=== PATIENT | female | born 1965 | race Two or more races ===

== ENCOUNTER 2025-05-20 19:23 | Emergency (ER) | payer OTHER ==
[~2025-05-20] VITALS: Ht 160 cm; Wt 65.9 kg
[2025-05-20 21:08] LABS: Hemoglobin 12.2 g/dL (12.2-16.2); Nucleated Red Blood Cells % 0.0 %
[2025-05-20 21:10] LABS: Hematocrit 37.1 % (36.0-46.0); Mean Corpuscular Hemoglobin 26.3 pg (28.0-32.0); Mean Corpuscular Volume 79.8 fL (80.0-100.0)
--- NOTE | 2025-05-20 21:22 | ED.PDOC ---
History of Present Illness HPI Comments 60 y/o F presents with spouse for nonradiating, epigastric abdominal pain, with associated nausea. History of hiatal hernia. Patient reports on her pain being her hernia. Denies any vomiting, diarrhea, or further acute symptoms alongside any pertinent events or additional medical history. Chief Complaint: Abdominal Pain Time Seen by MD: 20:00 Reviewed Notes: Nurses Notes, Medications, Allergies Information Source: Patient Mode of Arrival: Ambulatory Severity: Moderate Timing: Hours Duration: Since onset Prehospital treatment: None Past Medical History Past Medical History (Other): current hiatal hernia Surgical History: Denies all surgeries Family History Family History: Unknown Social History Smoker: Non-Smoker Alcohol: Denies ETOH Use Drugs: Denies Drug Use Lives In: Home All Other Systems: Reviewed and Negative (As per HPI) Physical Exam General Appearance: No Apparent Distress, Normal HEENT: Normal ENT Inspection, Pharynx Normal, TMs Normal Neck: Full Range of Motion, Non-Tender, Normal, Normal Inspection Respiratory: Chest Non-Tender, Lungs Clear, No Accessory Muscle Use, No Respiratory Distress, Normal Breath Sounds Cardiovascular: No Edema, No JVD, No Murmur, No Gallop, Normal Peripheral Pulses, Regular Rate/Rhythm Breast Exam: Deferred Gastrointestinal: Epigastric (mild tenderness ), No Organomegaly, No Pulsatile Mass, Normal Bowel Sounds, Soft, Tenderness (epigastric, mild) Genitalia: Deferred Pelvic: Deferred Rectal: Deferred Extremities: No calf tenderness, Normal capillary refill, Normal inspection, Normal range of motion, Non-tender, No pedal edema Musculoskeletal : Apperance: Normal Neurologic: Alert, customer success associate II-XII nml as Tested, No Motor Deficits, Normal Affect, Normal Mood, No Sensory Deficits Cerebellar Function: Normal Reflexes: Normal Skin: Dry, Normal Color, Warm Lymphatic: No Adenopathy Was a procedure done? Was a procedure done?: No Differential Dx Considerations may include: incarcerated hernia, strangulated hernia, gastritis, gastroenteritis, among others X-Ray, Labs, Meds, VS Vital Signs Date Time Temp Pulse Resp B/P (MAP) Pulse Ox O2 Delivery O2 Flow Rate FiO2 05/20/25 23:36 98.6 109 20 144/85 (104) 96 98.6 05/20/25 19:25 98.3 111 20 164/98 97 98.3 Lab Test 05/20/25 20:38 Range/Units White Blood Count 9.6 4.4-10.8 10^3/uL Red Blood Count 4.65 4.0-5.20 10^6/uL Hemoglobin 12.2 12.2-16.2 g/dL Hematocrit 37.1 36.0-46.0 % Mean Corpuscular Volume 79.8 L 80.0-100.0 fL Mean Corpuscular Hemoglobin 26.3 L 28.0-32.0 pg Mean Corpuscular Hemoglobin Concent 33.0 32.0-36.0 g/dL Red Cell Distribution Width 16.0 H 11.8-14.3 % Platelet Count 346 140-450 10^3/uL Mean Platelet Volume 8.2 6.9-10.8 fL Neutrophils (%) (Auto) 87.1 H 37.0-80.0 % Lymphocytes (%) (Auto) 9.9 L 10.0-50.0 % Monocytes (%) (Auto) 2.5 0.0-12.0 % Eosinophils (%) (Auto) 0.2 0.0-7.0 % Basophils (%) (Auto) 0.3 0.0-2.0 % Neutrophils # (Auto) 8.4 1.6-8.6 10 ^3/uL Lymphocytes # (Auto) 1.0 0.4-5.4 10 ^3/uL Monocytes # (Auto) 0.2 0-1.3 10 ^3/uL Eosinophils # (Auto) 0 0-0.8 10 ^3/uL Basophils # (Auto) 0 0-0.2 10 ^3/uL Nucleated Red Blood Cells 0.0 % Sodium Level 140 136-145 mmol/L Potassium Level 3.4 L 3.5-5.1 mmol/L Chloride Level 101 98-107 mmol/L Carbon Dioxide Level 26 20-31 mmol/L Anion Gap 13 5-15 Blood Urea Nitrogen 10 9-23 mg/dL Creatinine 0.89 0.550-1.02 mg/dL Glomerular Filtration Rate Calc 73 >90 mL/min BUN/Creatinine Ratio 11.2 10.0-20.0 Serum Glucose 195 H 74-106 mg/dL Calcium Level 9.4 8.7-10.4 mg/dL Total Bilirubin 1.3 H 0.2-1.0 mg/dL Aspartate Amino Transferase (AST) 31 13-40 U/L Alanine Aminotransferase (ALT) 36 7-40 U/L Alkaline Phosphatase 147 H 46-116 U/L Troponin I High Sensitivity 3 L </=34 ng/L Total Protein 8.8 H 5.7-8.2 g/dL Albumin 4.8 3.2-4.8 g/dL Lipase 81 H 12-53 U/L Current Medications Medications (Trade) Dose Ordered Sig/Antonette Route Start Time Stop Time Status Last Admin Sodium Chloride 1,000 ml @ 1,000 mls/hr Q1H ONCE IVB 05/20/25 20:00 05/20/25 20:59 DC 05/20/25 23:45 Time of 1ST Reevaluation: 20:30 Reevaluation 1ST: Unchanged Patient Education/Counseling: Diagnosis, Treatment Family Education/Counseling: Diagnosis, Treatment SEPSIS Sepsis Screen Date sepsis recognized/suspect: May 20, 2025 Time Sepsis recognized/suspect: 1929 Recent Procedure: No On Antibiotic Therapy: No Respiratory Rate >20: No Heart Rate >90: Yes Temp<36 C (96.8 F) or >38.3 C: No SBP <90 or MAP <65 mmHG: No New Acute Mental Status Change: No Is the patient on CPAP, BIPAP,: No Physician Orders Troponin-I Hs (05/21/25 00:00) Troponin-I Hs (05/21/25 03:00) Troponin-I Hs (05/21/25 06:00) Ct Ab Pel With Iv Con Only (05/20/25 19:59) Electrocardigram (05/20/25 19:59) Vital Signs Date Time Temp Pulse Resp B/P (MAP) Pulse Ox O2 Delivery O2 Flow Rate FiO2 05/20/25 23:36 98.6 109 20 144/85 (104) 96 98.6 05/20/25 19:25 98.3 111 20 164/98 97 98.3 Laboratory Tests Test 05/20/25 20:38 White Blood Count 9.6 10^3/uL (4.4-10.8) Medications Medications Dose Ordered Sig/Antonette Route Start Time Stop Time Status Last Admin Dose Admin Sodium Chloride 1,000 ml @ 1,000 mls/hr Q1H ONCE IVB 05/20/25 20:00 05/20/25 20:59 DC 05/20/25 23:45 Departure 1 Departure Time of Disposition: 00:09 Impression: Primary Impression: Acute pancreatitis Additional Impressions: Hiatal hernia Intractable abdominal pain Disposition: ADMITTED INPATIENT Admit to: Med Surg Condition: Guarded Comments 60-year-old female with a history of hiatal hernia now with severe abdominal pain. Her lipase is elevated 80. Her blood glucose is elevated at 192. Patient is still has pain on re-evaluation. Patient will need to be admitted for pancreatitis, hiatal hernia, intractable abdominal pain and hyperglycemia Critical Care Note Critical Care Time?: Yes (35 min-critical care time only) Critical care comment: Total critical care time: Approximately 36 minutes Due to a high probability of clinically significant, life threatening deterioration, the patient required my highest level of preparedness to in tervene emergently and I personally spent this critical care time directly and personally managing the patient. This critical care time included obtaining a history; examining the patient; pulse oximetry; ordering and review of studies; arranging urgent treatment with development of a management plan; evaluation of patient's response to treatment; frequent reassessment; and, discussions with other providers. This critical care time was performed to assess and manage the high probability of imminent, life-threatening deterioration that could result in multi-organ failure. It was exclusive of separately billable procedures and treating other patients. Stability Stability form required: No Heart Score Heart Score: Heart Score Response (Comments) Value History N/A 0 EKG N/A 0 Age N/A 0 Risk Factors N/A 0 Troponin N/A 0 Total 0 I personally scribed for DON SIMONS MD ([email or web address]) on 05/20/25 at 21:22. E lectronically submitted by Micky Iyre ([email or web address]). DON SIMONS MD May 20, 2025 21:22
[2025-05-20 21:24] LABS: Alanine Aminotransferase 36 U/L (7-40); Albumin 4.8 g/dL (3.2-4.8); Anion Gap 13 (5-15); Calcium 9.4 mg/dL (8.7-10.4); Carbon Dioxide 26 mmol/L (20-31); Chloride 101 mmol/L (98-107); Sodium 140 mmol/L (136-145)
[2025-05-20 21:39] LABS: Alkaline Phosphatase 147 U/L (46-116); Bilirubin, Total 1.3 mg/dL (0.2-1.0); Glucose 195 mg/dL (74-106); Lipase 81 U/L (12-53); Potassium 3.4 mmol/L (3.5-5.1); Total Protein 8.8 g/dL (5.7-8.2)
[2025-05-20 21:47] LABS: BUN/Creatinine Ratio 11.2 (10.0-20.0); Blood Urea Nitrogen 10 mg/dL (9-23)
--- NOTE | 2025-05-20 22:25 | DVH ---
EXAM: CT CT AB PEL WITH IV CON ONLY History: abd pain COMPARISON: None TECHNIQUE: Multidetector spiral CT of the abdomen and pelvis was performed from lung bases to pubic symphysis. Intravenous contrast was administered during this examination. Portal venous imaging was obtained. Axial, coronal and sagittal multiplanar reformats were performed by the technologist on a separate workstation. Radiation Dose : 1. Abdomen/Pelvis: CTDIvol 9.31mGy, DLP 439.25 mGy*cm. CONTRAST: Type of contrast: Omnipaque 300 Contrast injected: 100 ml FINDINGS: Lung Bases: No acute or significant lung base finding. Normal heart size. No pleural or pericardial effusion. Liver: The liver is normal in size. No focal lesions. Normal hepatic vascular enhancement. Gallbladder and Biliary Tree: Unremarkable Spleen: Unremarkable Pancreas: The pancreas is normal in appearance without focal lesions or abnormal enhancement. Adrenal Glands: Unremarkable Kidneys: No hydronephrosis. Bladder: Unremarkable Bowel: Scattered colonic diverticula. No surrounding inflammatory changes. No colitis, obstruction, appendicitis, or other acute abnormality. Large hiatal hernia. No obstruction. Ascites: Absent Lymphadenopathy: No mesenteric, retroperitoneal or periportal lymphadenopathy. Abdominal Wall and Mesentery: Unremarkable. Vasculature: The visualized abdominal aorta is normal in size and caliber. Abdominal and pelvic vessels demonstrate normal enhancement. Pelvic Organs: Unremarkable Musculoskeletal: No aggressive focal bony lesions, acute fractures or dislocation. IMPRESSION: No acute abdominal or pelvic finding. Radiation optimization: All CT scans at this facility use at least one of these dose optimization techniques: automated exposure control mA and/or kV adjustment per patient size (includes targeted exams where dose is matched to clinical indication) or iterative reconstruction.
[2025-05-20] MEDS: IOHEXOL 300 MG/ML 100ML BOTTLE IJ ONE (23:38)
[2025-05-20] MEDS: HYDROmorphone HCL 2 MG/ML VL/or syr IV ONE (23:38)
[2025-05-20] MEDS: ONDANSETRON HCL 4 MG/2 ML VIAL IV ONE (23:38)
[2025-05-20] MEDS: SODIUM CHLORIDE 0.9% 1,000 ML IVB ONE (23:45)
[2025-05-21 02:32] VITALS: BP 152/79; PULSE 89; RESP 18; TEMP 98.1; O2SAT 98
[2025-05-21] MEDS: POTASSIUM EFFERVESENT TAB 25 MEQ PO ONE (04:10)
== END 2025-05-21 04:44 | disposition left against medical advice (07) ==
LOC: ER 19:23
DX: K85.90 Acute pancreatitis without necrosis or infection, unspecified (principal); K44.9 Diaphragmatic hernia without obstruction or gangrene; R10.13 Epigastric pain
CPT/HCPCS: 36415; 74177; 80053; 83690; 84484; 85025; 96360; 99291; J7030; Q9967